=== PATIENT | male | born 1945 | race Two or more races ===

== ENCOUNTER 2018-01-30 11:56 | Emergency (ER) | payer OTHER ==
[~2018-01-30] VITALS: Ht 175.3 cm; Wt 88.5 kg
[2018-01-30] MEDS ORDERED: BISOPROLOL FUMAR5 MG (12:36)
[2018-01-30] MEDS ORDERED: ELIQUIS2.5 MG (12:36)
[2018-01-30] MEDS ORDERED: TAMS0.4C (12:37)
== END 2018-01-30 16:01 | disposition home or self-care (01) ==
LOC: ER 11:56 → CPU-OBS 11:58 → ER 11:58
DX: I48.91 Unspecified atrial fibrillation (principal)
CPT/HCPCS: G0378; G0379; 93005

== ENCOUNTER 2019-08-23 16:41 | Outpatient (CLI) | payer OTHER ==
[~2019-08-23 16:41] MED LIST: BISOPROLOL FUMAR5 MG; ELIQUIS2.5 MG; TAMS0.4C
== END 2019-08-23 16:49 | disposition home or self-care (01) ==
LOC: RAD 16:41
DX: J18.0 Bronchopneumonia, unspecified organism (principal)

== ENCOUNTER 2023-01-24 13:38 | Outpatient (CLI) | payer OTHER | END 2023-01-24 13:47 | disposition home or self-care (01) | LOC: SONOGRAMA 13:38 | PROVIDERS: ATTEND Internal Medicine Endocrinology, Diabetes & Metabolism | DX: E04.1 Nontoxic single thyroid nodule (principal) ==